=== PATIENT | female | born 1970 | race Caucasian/White ===

== ENCOUNTER 2017-05-09 00:18 | Emergency (ER) ==
[2017-05-09 00:27] VITALS: BP 211/123; TEMP 99.7; BMI 20.3
[2017-05-09] MEDS ORDERED: CATAPRES PO STA (00:33)
[2017-05-09] MEDS ORDERED: DECADRON 4 MG/ML SDV IM STA (00:33)
[2017-05-09 00:43] LABS: BASOPHILS % (AUTO) 0.4 % (0.0-3.0); EOSINOPHILS # (AUTO) 0.1 K/ul (0.0-0.7); EOSINOPHILS % (AUTO) 0.7 % (0.0-7.0); HEMATOCRIT 43.8 % (37.0-47.0); HEMOGLOBIN 15.1 g/dl (12.0-16.0); IMMATURE GRANULOCYTE % (AUTO) 0.1 % (0.0-5.0); LYMPHOCYTES # (AUTO) 1.1 K/uL (0.60-3.4); LYMPHOCYTES % (AUTO) 15.4 (10.0-50.0); MEAN CORPUSCULAR HEMOGLOBIN 30.9 pg (27.0-31.0); MEAN CORPUSCULAR HGB CONC 34.5 (31.8-35.4); MEAN CORPUSCULAR VOLUME 89.6 fl (81.0-99.0); MONOCYTES # (AUTO) 0.6 K/uL (0.4-2.0); MONOCYTES % (AUTO) 8.7 (0-10); NEUTROPHILS # (AUTO) 5.4 K/ul (2.0-6.9); NEUTROPHILS % (AUTO) 74.7; PLATELET COUNT 171 10^3/uL (140-440); RED BLOOD COUNT 4.89 10^6/ul (4.20-5.40); WHITE BLOOD COUNT 7.26 K/ul (4.6-10.2)
[2017-05-09] MEDS ORDERED: BENADRYL PO STA (01:00)
--- NOTE | 2017-05-09 01:01 | ED.PDOC ---
General ED Provider: Dr. ANTONELLA MORAN Chief Complaint: Non-specific Complaint Stated Complaint: coughing, congested, sinus drainage,. bodyaches. on triage, her BP found to be high Time Seen by Physician: 00:59 Mode of Arrival: Walk-In Information Source: Patient Nursing and Triage Documentation Reviewed and Agree: Yes Respiratory Complaint Exam - Respiratory Complaint/Exam Symptoms Are: Still present Timing: Constant Initial Severity: Mild Current Severity: Mild Location: Nose, Chest Character: Reports: Productive cough Aggravating: Reports: None Alleviating: Reports: None Associated Signs and Symptoms: Reports: Edema, URI, Nasal congestion, Hoarseness History of Healthcare-Acquired Pneumonia: No Related Surgical History: Reports: None Pulmonary Embolism Risk Factors: None Cardiac Risk Factors: Reports: None Pseudomonas Risk Factors: Reports: None Tuberculosis Risk Factors: Reports: None Status Asthmaticus Risk Factors: Reports: None Recent Stress Test: No Recent Echo/LV Function: No Current Antibiotic Use: No Current Asthma Medication Use: No Respiratory Distress: None Inadequate Respiratory Effort: Yes Dysphagia Present: No Stridor Present: No JVD Present: No Accessory Muscle Use: No Diminished Breath Sounds: No Sinus Tenderness: None Grunting Respirations: No Kussmaul Respirations: No Differential Diagnoses: Bronchitis, Other (hypertension) Review of Systems - Review Of Systems Constitutional: Reports: Malaise, Weakness Eyes: Reports: No symptoms Ears, Nose, Mouth, Throat: Reports: Nose discharge Respiratory: Reports: Cough Cardiac: Reports: No symptoms GI: Reports: No symptoms : Reports: No symptoms Musculoskeletal: Reports: No symptoms Skin: Reports: No symptoms Neurological: Reports: No symptoms Endocrine: Reports: No symptoms Hematologic/Lymphatic: Reports: No symptoms All Other Systems: Reviewed and Negative Past Medical History - Past Medical History Previously Healthy: Yes Endocrine: Reports: None Cardiovascular: Reports: None Respiratory: Reports: None Hematological: Reports: None Gastrointestinal: Reports: None Genitourinary: Reports: None Neuro/Psych: Reports: None Musculoskeletal: Reports: None Cancer: Reports: None Last Menstrual Period: YEARS AGO - Surgical History General Surgical History: Reports: None - Family History Family History: Reports: None - Social History Smoking Status: Current every day smoker Smoking Cessation Counseling Time: > 3 min - 10 min Hx Substance Use: No Alcohol Screening: None - Immunizations Tetanus Shot up to Date: Yes Physical Exam - Physical Exam Appearance: Well-appearing, No pain distress, Well-nourished Eyes: RASHAWN, EOMI, Conjunctiva clear ENT: Ears normal, Nose normal, Oropharynx normal Respiratory: Airway patent, Breath sounds clear, Breath sounds equal, Respirations nonlabored Cardiovascular: RRR, Pulses normal, No rub, No murmur GI/: Soft, Nontender, No masses, Bowel sounds normal, No Organomegaly Musculoskeletal: Normal strength, ROM intact, No edema, No calf tenderness Skin: Warm, Dry, Normal color Neurological: Sensation intact, Motor intact, Reflexes intact, Cranial nerves intact, Alert, Oriented Psychiatric: Affect appropriate, Mood appropriate Critical Care Note - Critical Care Note Total Time (mins): 0 Course - Course Hematology/Chemistry: 05/09/17 00:43 Orders, Labs, Meds: Lab Review 05/09/17 00:43 WBC 7.26 RBC 4.89 Hgb 15.1 Hct 43.8 MCV 89.6 MCH 30.9 MCHC 34.5 RDW Coeff of Salma 12.9 Plt Count 171 Immature Gran % (Auto) 0.1 Neut % (Auto) 74.7 Lymph % (Auto) 15.4 Wilkinson % (Auto) 8.7 Eos % (Auto) 0.7 Baso % (Auto) 0.4 Immature Gran # (Auto) 0.0 Neut # 5.4 Lymph # 1.1 Wilkinson # 0.6 Eos # 0.1 Baso # 0.0 Orders Category Date Time Status CBC W/ AUTO DIFF Stat LAB 05/09/17 00:43 Completed COMPREHENSIVE METABOLIC PANEL Stat LAB 05/09/17 00:43 Received Clonidine HCl [Catapres] MEDS 05/09/17 00:33 Discontinued 0.2 mg PO ONCE STA Dexamethasone 4 mg/ml Inj [Decadron 4 mg/ml Sdv] MEDS 05/09/17 00:33 Discontinued 4 mg IM ONCE STA Medications Discontinued Medications Generic Name Dose Route Start Last Admin Trade Name Freq PRN Reason Stop Dose Admin Clonidine 0.2 mg 05/09/17 00:33 05/09/17 00:44 Catapres PO 05/09/17 00:34 0.2 mg ONCE STA Administration Dexamethasone Sodium Phosphate 4 mg 05/09/17 00:33 05/09/17 00:45 Decadron 4 Mg/Ml Sdv IM 05/09/17 00:34 4 mg ONCE STA Administration Vital Signs: Temp Pulse Resp BP Pulse Ox 05/09/17 00:19 99.7 F H 76 20 211/123 H 99 Departure - Departure Time of Disposition: 01:08 Disposition: HOME SELF-CARE Discharge Problem: URTI (acute upper respiratory infection), Essential hypertension Instructions: Hypertension (ED) Condition: Good Pt referred to PMD for follow-up: Yes Additional Instructions: KEEP CHECKING BLOOD PRESSURE, TAKE MEDICATIONS WITH FOOD Prescriptions: Cephalexin [Keflex] 500 mg PO Q12HR #20 capsule Diphenhydramine HCl [Benadryl] 25 mg PO Q6H #14 capsule Metoprolol Tartrate 50 mg PO BID #20 tablet Prednisone 5 mg PO BIDWM #14 tablet Allergies/Adverse Reactions: Allergies No Known Allergies Allergy (Unverified 05/09/17 00:24) Home Medications: Ambulatory Orders Cephalexin [Keflex] 500 mg PO Q12HR #20 capsule 05/09/17 Clindamycin HCl [Cleocin] 300 mg PO Q8HR 05/09/17 Diphenhydramine HCl [Benadryl] 25 mg PO Q6H #14 capsule 05/09/17 Metoprolol Tartrate 50 mg PO BID #20 tablet 05/09/17 Prednisone 5 mg PO BIDWM #14 tablet 05/09/17 Disposition Discussed With: Patient, Family
[2017-05-09 01:27] LABS: ALBUMIN 4.2 g/dL (3.4-5.0); ALBUMIN/GLOBULIN RATIO 1.17; ANION GAP 19.7; BILIRUBIN,TOTAL 0.69 mg/dL (0.00-1.20); BUN/CREATININE RATIO 13.33; CALCIUM 9.6 mg/dL (8.2-10.2); CREATININE 0.75 mg/dL (0.60-1.30); POTASSIUM 3.7 mmol/L (3.5-5.10); TOTAL PROTEIN 7.8 g/dL (6.4-8.2)
== END 2017-05-09 01:18 | disposition home or self-care (01) ==
LOC: ED 00:18
DX: J06.9 Acute upper respiratory infection, unspecified (principal); I10 Essential (primary) hypertension; F17.210 Nicotine dependence, cigarettes, uncomplicated
CPT/HCPCS: 36415; 80053; 85025; 96372; 99283

== ENCOUNTER 2017-05-29 12:49 | Outpatient (CLI) ==
[2017-05-29] MEDS ORDERED: ALBUTEROL 0.083% NEB NEB STA (13:10)
== END 2017-05-29 12:50 | disposition home or self-care (01) ==
LOC: CAR 12:49
PROVIDERS: ATTEND Emergency Medicine
DX: R06.02 Shortness of breath (principal); F17.200 Nicotine dependence, unspecified, uncomplicated

== ENCOUNTER 2017-06-29 11:04 | Outpatient (CLI) ==
--- NOTE | 2017-07-02 09:07 | MAMMO ---
EXAM: Bilateral digital screening mammogram (3-D and 2-D) History: Baseline screening Findings: MLO and CC views of bilateral breasts demonstrate heterogeneously dense breast parenchyma which can obscure small lesions. CAD was reviewed by the radiologist. Tomosynthesis was performed. There are no dominant masses and no suspicious microcalcifications. No architectural distortions Impression: Negative mammogram. Recommend followup routine screening mammography in 1 year. BIRADS 1
== END 2017-06-29 11:05 | disposition home or self-care (01) ==
LOC: RAD 11:04
PROVIDERS: ATTEND Emergency Medicine
DX: Z12.31 Encounter for screening mammogram for malignant neoplasm of breast (principal)
CPT/HCPCS: 77067